=== PATIENT | female | born 1985 | race African-American/Black ===

== ENCOUNTER → 2021-10-07 | Outpatient (CLI) | payer OTHER | LOC: M CARPUL 09:00 | PROVIDERS: ATTEND Internal Medicine | DX: Z13.6 Encounter for screening for cardiovascular disorders (principal) ==

== ENCOUNTER 2021-12-07 17:22 | Emergency (ER) | payer OTHER ==
[~2021-12-07] VITALS: Ht 165.1 cm; Wt 101.4 kg
[2021-12-07] MEDS ORDERED: ALLE1TAB23 (17:33)
[2021-12-07] MEDS ORDERED: ARIP1TAB4 (17:33)
[2021-12-07] MEDS ORDERED: ESZO1TAB4 (17:33)
[2021-12-07] MEDS ORDERED: ZOLO100T (17:33)
[2021-12-07] MEDS ORDERED: LABE100T4 (17:33)
[2021-12-07 18:21] LABS: RSV AMPLIFICATION NEGATIVE (NEGATIVE)
[2021-12-07] MEDS ORDERED: LIDO2SOL17 PO (22:59)
[2021-12-07] MEDS ORDERED: ACETAMINOPHEN 500 MG TAB PO ONE (23:05)
[2021-12-07 23:11] VITALS: BP 153/79
== END 2021-12-07 23:12 | disposition home or self-care (01) ==
LOC: M ED 17:22
DX: J04.0 Acute laryngitis (principal); R05.9 Cough, unspecified; M79.10 Myalgia, unspecified site; J35.8 Other chronic diseases of tonsils and adenoids; I10 Essential (primary) hypertension